=== PATIENT | female | born 1930 | race Hispanic/Latino ===

== ENCOUNTER 2017-07-07 20:00 | Inpatient (IN) | payer MEDICARE, MEDICAID ==
[2017-07-07 20:56] LABS: BASO # 0.02 K/mm3 (0.0-2.0); BASO % 0.3 % (0.0-3.0); EOS # 0.2 (0.0-0.7); EOS % 2.7 % (1.5-5.0); GRAN # 3.83 (1.4-6.5); HEMOGLOBIN 12.3 g/dL (12.0-16.0); LYMPH # 1.8 (1.2-3.4); LYMPH % 28.1 % (22.0-35.0); MEAN CELL VOLUME 91.6 fl (80.0-105.0); MEAN CORPUSCULAR HEMOGLOBIN 30.4 pg (25.0-35.0); MEAN CORPUSCULAR HGB CONC 33.2 g/dl (31.0-37.0); MONO # 0.5 (0.1-0.6); MONO % 7.9 % (1.0-6.0); RBC 4.05 10^6/uL (3.5-6.1); RED CELL DISTRIBUTION WIDTH 13.6 % (11.5-14.5); WHITE BLOOD COUNT 6.3 10^3/ul (4.5-11.0)
[2017-07-07 21:02] LABS: ALB/GLOB RATIO 1.1 (1.1-1.8); ALBUMIN 4.2 g/dL (3.0-4.8); ALT/SGPT 23 U/L (7-56); AST/SGOT 25 U/L (14-36); BLOOD UREA NITROGEN 31 mg/dL (7-21); CALCIUM 10.2 mg/dL (8.4-10.5); GFR AFRICAN-AMERICAN > 60; GFR NON-AFRICAN AMERICAN 53
[2017-07-07 21:12] LABS: TROPONIN I < 0.01 ng/mL
--- NOTE | 2017-07-07 21:18 | ED PDOC ---
Arrival/HPI - General Chief Complaint: Psychiatric Evaluation Time Seen by Provider: 07/07/17 20:11 Historian: Patient - History of Present Illness Narrative History of Present Illness (Text): 07/07/17 20:20 A 87 year old female, whose past medical history includes dementia, hypertension , and depression, is brought in form [facility], presents to the emergency department for syncopal episode (yesterday) evaluation. Today, patient showed signs of agitation by yelling and screaming at times. No history of any documented chest pain or shortness of breath. Patient with further attempt to question yells that she want to go home and doesn't want to be here. Patient is refusing to answer questions. Limited HPI and ROS due to patient being uncooperative. PMD: Dr. Stacy Past Medical History - Provider Review Nursing Documentation Reviewed: Yes - Cardiac Hx Cardiac Disorders: Yes Hx Hypertension: Yes - Pulmonary Hx Respiratory Disorders: No - Neurological Hx Neurological Disorder: Yes Hx Syncope: Yes - HEENT Hx HEENT Disorder: No - Renal Hx Renal Disorder: No - Endocrine/Metabolic Hx Endocrine Disorders: No - Hematological/Oncological Hx Blood Disorders: No - Integumentary Hx Dermatological Disorder: No - Musculoskeletal/Rheumatological Hx Musculoskeletal Disorders: Yes Other/Comment: FX T10 - Gastrointestinal Hx Gastrointestinal Disorders: No - Genitourinary/Gynecological Hx Genitourinary Disorders: No - Psychiatric Hx Psychophysiologic Disorder: Yes Hx Depression: Yes Hx Substance Use: No Family/Social History - Physician Review Nursing Documentation Reviewed: Yes Family/Social History: No Known Family HX Smoking Status: Smoker Currrent Status Unknown Hx Alcohol Use: No Hx Substance Use: No Allergies/Home Meds Allergies/Adverse Reactions: Allergies No Known Allergies Allergy (Verified 07/07/17 20:03) Home Medications: Home Meds Medication Instructions Recorded Confirmed Acetaminophen [Tylenol 325mg tab] 650 mg PO Q4 PRN 07/07/17 07/07/17 Aluminum Hydroxide/Magnesium H 30 ml PO PRN PRN 07/07/17 07/07/17 [Maalox 30 ml] Lisinopril [Zestril] 10 mg PO DAILY 07/07/17 07/07/17 Loperamide HCl [Loperamide] 2 mg PO Q6 PRN 07/07/17 07/07/17 Metoprolol Tartrate [Lopressor] 25 mg PO BID 07/07/17 07/07/17 Paroxetine HCl [Paxil] 10 mg PO 2100 07/07/17 07/07/17 Review of Systems - Review of Systems Systems not reviewed;Unavailable: Uncooperative Physical Exam Vital Signs Reviewed: Yes Vital Signs Temp Pulse Resp BP Pulse Ox 07/07/17 22:01 73 16 124/66 100 07/07/17 20:26 98.9 F 88 24 146/96 H 97 Temperature: Afebrile Blood Pressure: Normal Pulse: Regular Respiratory Rate: Normal Appearance: Positive for: Well-Appearing Pain Distress: None Mental Status: No: Alert and Oriented X 3 (alert and disoriented in time and place, uncooperative) Finger Stick Blood Glucose: 126 - Systems Exam Head: Present: Atraumatic, Normocephalic Pupils: Present: PERRL Extroacular Muscles: Present: EOMI Conjunctiva: Present: Normal Mouth: Present: Moist Mucous Membranes Neck: Present: Normal Range of Motion Respiratory/Chest: Present: Clear to Auscultation, Good Air Exchange. No: Respiratory Distress, Accessory Muscle Use Cardiovascular: Present: Regular Rate and Rhythm, Normal S1, S2. No: Murmurs Abdomen: Present: Normal Bowel Sounds. No: Tenderness, Distention, Peritoneal Signs Back: Present: Normal Inspection Upper Extremity: Present: Normal Inspection. No: Cyanosis, Edema Lower Extremity: Present: Normal Inspection. No: Edema Neurological: Present: GCS=15, CN II-XII Intact, Speech Normal Skin: Present: Warm, Dry, Normal Color. No: Rashes Psychiatric: Present: Alert, Agitated. No: Oriented x 3 (disoriented in time and place) Medical Decision Making ED Course and Treatment: EKG: Ordered, reviewed, and independently interpreted the EKG. Rate : 79 BPM Rhythm : NSR Interpretation : No ST-segment elevations or depressions, no T-wave inversions, normal intervals. Comparison : No previous EKG for comparison. 07/07/17 22:36 Case was d/w /Stacey covering for PMD.Accepts to her service.Request / on consult. EXAM: CT Head Without Intravenous Contrast Dictated and Authenticated by: Paco Quintero MD 07/07/2017 11:12 PM IMPRESSION: 1. No definitive acute intracranial hemorrhage or acute territorial type infarct. 2. There is moderate to extensive cerebral white matter hypodensity, likely representing small vessel ischemic disease in a patient this age. 3. Moderate atrophy. 4. If further evaluation is clinically indicated, an MRI of the brain is recommended. - Lab Interpretations Lab Results: 07/07/17 20:30 07/07/17 20:30 Lab Results 07/07/17 20:30: Alcohol, Quantitative < 10 07/07/17 20:30: Sodium 142, Potassium 4.2, Chloride 108 H, Carbon Dioxide 25, Anion Gap 14, BUN 31 H, Creatinine 1.0, Est GFR ( Amer) > 60, Est GFR ( Non-Af Amer) 53, Random Glucose 129 H, Calcium 10.2, Total Bilirubin 0.5, AST 25 , ALT 23, Alkaline Phosphatase 83, Lactate Dehydrogenase 613, Total Creatine Kinase 42, Troponin I < 0.01, Total Protein 8.1, Albumin 4.2, Globulin 3.9, Albumin/Globulin Ratio 1.1 07/07/17 20:30: WBC 6.3, RBC 4.05, Hgb 12.3, Hct 37.1, MCV 91.6, MCH 30.4, MCHC 33.2, RDW 13.6, Plt Count 254, MPV 11.0, Gran % 61.0, Lymph % (Auto) 28.1, Wood % (Auto) 7.9 H, Eos % (Auto) 2.7, Baso % (Auto) 0.3, Gran # 3.83, Lymph # 1.8, Wood # 0.5, Eos # 0.2, Baso # 0.02 - RAD Interpretation Narrative RAD Interpretations (Text): 07/07/17 22:35 CXR-no acute process Radiology Orders: 07/07/17 20:21 CHEST PORTABLE [RAD] Stat 07/07/17 20:43 HEAD W/O CONTRAST [CT] Stat Odd Piece Checker: ED Physician - Medication Orders Current Medication Orders: Discontinued Medications Lorazepam (Ativan) 1 mg IVP ONCE ONE Stop: 07/07/17 20:34 Last Admin: 07/07/17 20:37 Dose: 1 mg IVP Administration Document 07/07/17 20:37 CHRISTIAN (Rec: 07/07/17 20:37 CHRISTIAN [id number]) Charges for Administration # of IVP Administrations 1 - Scribe Statement The provider has reviewed the documentation as recorded by the Tramaine Farfan Provider Getachewibjinny Attestation: All medical record entries made by the Getachewibjinny were at my direction and personally dictated by me. I have reviewed the chart and agree that the record accurately reflects my personal performance of the history, physical exam, medical decision making, and the department course for this patient. I have also personally directed, reviewed, and agree with the discharge instructions and disposition. Disposition/Present on Arrival - Present on Arrival Any Indicators Present on Arrival: No History of DVT/PE: No History of Uncontrolled Diabetes: No Urinary Catheter: No History of Decub. Ulcer: No History Surgical Site Infection Following: None - Disposition Have Diagnosis and Disposition been Completed?: Yes Diagnosis: Syncope, Dementia Disposition: HOSPITALIZED Disposition Time: 22:36 Patient Plan: Observation Patient Problems: Current Active Problems Problem Status Onset Dementia Acute Syncope Acute Condition: STABLE
--- NOTE | 2017-07-07 23:12 | CT ---
EXAM: CT Head Without Intravenous Contrast EXAM DATE/TIME: 07/07/2017 8:43 PM CLINICAL HISTORY: The patient age is 87 years old and is female; Signs and symptoms; Altered mental status/memory loss and dizziness; Confusion or disorientation; Additional info: Syncope Facility exam id and description: Ct heads head w/o contrast TECHNIQUE: Axial computed tomography images of the head/brain without intravenous contrast. All CT scans at this facility use one or more dose reduction techniques, viz.: automated exposure control; ma/kV adjustment per patient size (including targeted exams where dose is matched to indication; i.e. head); or iterative reconstruction technique. COMPARISON: No relevant prior studies available. FINDINGS: Artifacts: Motion artifact limits the study. Brain: There is moderate to extensive cerebral white matter hypodensity, likely representing small vessel ischemic disease in a patient this age. The acuity of the white matter disease is indeterminate. The white-red differentiation is preserved demonstrating no acute territorial type infarct. There is moderate prominence of the ventricles and sulci, compatible with atrophy. No acute intracranial hemorrhage is seen. Midline shift: There is no midline shift. Ventricles: See above. Bones/joints: The calvarium demonstrates no evidence for a depressed fracture. Soft tissues: No acute abnormality. Vasculature: There is atherosclerotic calcification of the cavernous internal carotid arteries and distal vertebral arteries. Sinuses: Unremarkable as visualized. No acute sinusitis. Mastoid air cells: No mastoid effusion. IMPRESSION: 1. No definitive acute intracranial hemorrhage or acute territorial type infarct. 2. There is moderate to extensive cerebral white matter hypodensity, likely representing small vessel ischemic disease in a patient this age. 3. Moderate atrophy. 4. If further evaluation is clinically indicated, an MRI of the brain is recommended.
[2017-07-07 23:31] LABS: URINE BILIRUBIN NEGATIVE (NEGATIVE); URINE BLOOD NEGATIVE (NEGATIVE); URINE GLUCOSE (UA) NEGATIVE (NEGATIVE); URINE LEUKOCYTE ESTERASE NEGATIVE Leu/uL (NEGATIVE); URINE NITRATE NEGATIVE (NEGATIVE); URINE PROTEIN NEGATIVE mg/dL (<30 mg/dL); URINE UROBILINOGEN 0.2 E.U./dL (<1 E.U./dL)
[2017-07-07 23:42] LABS: URINE APPEARANCE CLEAR (CLEAR); URINE COLOR YELLOW (YELLOW)
[2017-07-07 23:58] LABS: BARBITURATES, UR NEGATIVE (NEGATIVE); BENZODIAZEPINES, UR NEGATIVE (NEGATIVE); OPIATES, UR NEGATIVE (NEGATIVE); PHENCYCLIDINE, UR NEGATIVE (NEGATIVE)
[2017-07-08 09:38] LABS: BASO # 0.01 K/mm3 (0.0-2.0); BASO % 0.1 % (0.0-3.0); EOS # 0.2 (0.0-0.7); EOS % 2.6 % (1.5-5.0); GRAN # 4.5 (1.4-6.5); GRAN % 64.6 % (50.0-68.0); HEMOGLOBIN 11.7 g/dL (12.0-16.0); LYMPH # 1.8 (1.2-3.4); LYMPH % 25.1 % (22.0-35.0); MEAN CELL VOLUME 91.2 fl (80.0-105.0); MEAN CORPUSCULAR HEMOGLOBIN 30.4 pg (25.0-35.0); MEAN CORPUSCULAR HGB CONC 33.3 g/dl (31.0-37.0); MEAN PLATELET VOLUME 11.1 fl (7.0-11.0); MONO # 0.5 (0.1-0.6); MONO % 7.6 % (1.0-6.0); RBC 3.85 10^6/uL (3.5-6.1); RED CELL DISTRIBUTION WIDTH 13.7 % (11.5-14.5)
[2017-07-08 09:43] LABS: CALCIUM 9.8 mg/dL (8.4-10.5); GFR AFRICAN-AMERICAN > 60; GFR NON-AFRICAN AMERICAN > 60
[2017-07-08 09:46] LABS: BLOOD UREA NITROGEN 31 mg/dL (7-21)
[2017-07-08] MEDS: Nystatin 100,000 Units/gm Cream(15 gm) TOP SCH ×4 (10:10→18:04)
--- NOTE | 2017-07-08 11:22 | RAD ---
HISTORY: medical clearance COMPARISON: No prior. FINDINGS: LUNGS: No active pulmonary disease. PLEURA: No significant pleural effusion identified, no pneumothorax apparent. CARDIOVASCULAR: Normal. OSSEOUS STRUCTURES: No significant abnormalities. VISUALIZED UPPER ABDOMEN: Normal. OTHER FINDINGS: None. IMPRESSION: No active disease.
--- NOTE | 2017-07-08 17:10 | CARD ---
APPROVED REPORT EKG Measurement Heart [id number] <Conclusion> Normal sinus rhythm Possible Left atrial enlargement Borderline ECG
--- NOTE | 2017-07-08 19:23 | CON ---
NEUROLOGY CONSULTATION DATE: 07/08/2017 CHIEF COMPLAINT: Questionable syncope. HISTORY OF PRESENT ILLNESS: This is an 88-year-old woman with past medical history of dementia, hypertension, depression, who was brought in from [facility]. She presented to Emergency Room for questionable syncopal episode. She agitation in the Emergency Department, yelling and screaming and pulling her clothes. Currently, she is sedated with Ativan, otherwise she answers limited questions. She moves all extremities. Slight increased tone throughout. Blood pressures are currently stable. She is mildly tachycardiac. Ativan was given and is more calm down. She cannot do the carotid Doppler due to have been agitated. PAST MEDICAL HISTORY: History of depression, anxiety, and hypertension. REVIEW OF SYSTEMS: A 14-point review of systems in negative as per the HPI. MEDICATIONS: Reviewed by nurse's reconciliation sheet. ALLERGIES: NO KNOWN DRUG ALLERGIES. PHYSICAL EXAMINATION GENERAL: The patient seen in bed, sleepy, in no acute distress. VITAL SIGNS: Temperature 97, pulse 87, blood pressure 147/86, respiratory rate of 20 and oxygen saturation of 99% by room air. HEENT: Head atraumatic and normocephalic. PERRLA. Extraocular muscles intact. NECK: Supple. No JVD. No adenopathy noted. LUNGS: Clear to auscultation. No adventitious sounds. HEART: S1 and S2, normal rate and rhythm. No murmurs, rubs, or gallops. ABDOMEN: Soft, nontender and nondistended. Bowel sounds are present. EXTREMITIES: No clubbing, no cyanosis. Peripheral pulses 2+ bilaterally. NEUROLOGIC: The patient is drowsy, no acute distress. She is oriented to person, place, but not much to month or time. She is uncooperative, is agitated, has poor outlook, slow thought process. Cranial nerves II through XII intact. Motor exam: Slightly increased tone throughout. Moves all extremities equally. No pronator seen. Sensory exam: The patient does not withdraw to localized or noxious stimulus, light touch intact. DTRs are 1+ throughout. Coordination and gait is deferred for now. LABORATORY DATA: Sodium 140, potassium 4.2, chloride 107, carbon dioxide of 23, BUN of 31, creatinine 0.8 and random glucose 115. ASSESSMENT AND PLAN: This is an 87-year-old woman with history of dementia, hypertension, depression, and anxiety who presented to the hospital from [facility] for possible syncope and was thought to be agitated in the Emergency Room. Currently, my impression that she has dementia with behavioral disturbances along with questionable syncopal event. RECOMMENDATIONS: At this time: 1. Gentle hydration. 2. Acute systolic blood pressure 120 to 130 mmHg and avoid systolic drops. 3. Orthostatic vital signs. 4. Carotid Doppler. 5. Seroquel 12.5 mg p.o. at bedtime for agitation and CAT scan of head is negative for any acute; therefore continue present medical management and delirium precautions. No further workup from Neurology standpoint needed. Thank you for this consultation. Oliver Brown MD
[2017-07-09 07:29] LABS: BASO # 0.02 K/mm3 (0.0-2.0); BASO % 0.4 % (0.0-3.0); EOS # 0.2 (0.0-0.7); EOS % 3.2 % (1.5-5.0); GRAN # 2.3 (1.4-6.5); GRAN % 49.3 % (50.0-68.0); HEMOGLOBIN 12.1 g/dL (12.0-16.0); LYMPH # 1.7 (1.2-3.4); LYMPH % 36.2 % (22.0-35.0); MEAN CELL VOLUME 90.2 fl (80.0-105.0); MEAN CORPUSCULAR HEMOGLOBIN 29.7 pg (25.0-35.0); MEAN CORPUSCULAR HGB CONC 32.9 g/dl (31.0-37.0); MEAN PLATELET VOLUME 10.9 fl (7.0-11.0); MONO # 0.5 (0.1-0.6); MONO % 10.9 % (1.0-6.0); RBC 4.08 10^6/uL (3.5-6.1); RED CELL DISTRIBUTION WIDTH 13.5 % (11.5-14.5); WHITE BLOOD COUNT 4.7 10^3/ul (4.5-11.0)
[2017-07-09 07:39] LABS: BLOOD UREA NITROGEN 27 mg/dL (7-21); GFR AFRICAN-AMERICAN > 60; GFR NON-AFRICAN AMERICAN > 60
[2017-07-09 08:35] VITALS: RESP 20; TEMP 98.2; O2SAT 98
[2017-07-09] MEDS: Nystatin 100,000 Units/gm Cream(15 gm) TOP SCH ×2 (10:29→14:28)
[2017-07-09 10:30] VITALS: BP 173/90; PULSE 79
--- NOTE | 2017-07-09 12:06 | US ---
PROCEDURE: Bilateral carotid artery duplex ultrasound HISTORY: Carotid stenosis dizziness PHYSICIAN(S): Jaret Mars MD. TECHNIQUE: Duplex sonography and color-flow Doppler were used to evaluate the carotid bifurcations and limited segments of the vertebral arteries bilaterally. FINDINGS: There is mild smooth heterogeneous plaque noted at the carotid bifurcations bilaterally. The peak systolic velocity in the proximal right internal carotid artery is 80 cm/sec. This corresponds to a 20 to 39% proximal right ICA stenosis. Normal systolic velocities are noted in the proximal right external carotid artery. There is antegrade flow in the right vertebral artery. The peak systolic velocity in the proximal left internal carotid artery is 73 cm/sec. This corresponds to a 20 to 39% proximal left ICA stenosis. Normal systolic velocities are noted in the proximal left external carotid artery. There is antegrade flow in the left vertebral artery. IMPRESSION: 1. 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 2. Antegrade flow in both vertebral arteries.
[2017-07-10] MEDS ORDERED: Influenza Vaccine 60 mcg/0.5 mL SYR (4YR UP) IM ONE (10:00)
[2017-07-10] MEDS ORDERED: Pneumococcal 23-Valent Vaccine IM ONE (10:00)
--- NOTE | 2017-07-14 09:45 | CP.PCM.PCO ---
Physician Communication Note - Physician Communication Note Physician Communication Note: pt was d/c
--- NOTE | 2017-07-14 10:05 | CON ---
DATE: 07/09/2017 HISTORY OF PRESENT ILLNESS: She was referred today for consultation. Note, the patient had been discharged by the time, we were able to see the patient and review of the chart and discussion of staff. It appears that the patient is psychiatrically cleared to return to the [facility]. After her presentation in the Emergency Room, where she was quiet, agitated, when she had been brought in from [facility], she calmed down on the floor and was able to be treated. She did have 1 episode of trying to climb out of bed during the night, was medicated and then went back to sleep. PAST MEDICAL HISTORY: Her medical history includes dementia, hypertension, and depression. PHYSICAL EXAMINATION: VITAL SIGNS: Her last vital signs were temperature 98.2, pulse rate 74, blood pressure 173/90, respiratory rate 20, and an O2 saturation of 98%. The patient was returned to [facility]. Her family was in agreement with the plan. This case was discussed with Dr. Saini. Xiao James APN Paul Saini MD [id number]
== END 2017-07-09 16:18 | DRG 884 ==
LOC: ED 20:00 → ERH 22:38 → 2RSO 07-08 00:12 → 5RNO 07-08 12:18 → OBSVTOIN 07-08 18:50
PROVIDERS: ADMIT Internal Medicine Medical Oncology; ATTEND Internal Medicine Medical Oncology
DX: F03.91 Unspecified dementia, unspecified severity, with behavioral disturbance (principal); F32.89 Other specified depressive episodes; F41.9 Anxiety disorder, unspecified; I10 Essential (primary) hypertension; Z79.899 Other long term (current) drug therapy